=== PATIENT | male | born 1975 | race Caucasian/White ===

== ENCOUNTER 2020-12-21 18:31 | Inpatient (IN) | payer OTHER, SELFPAY ==
--- NOTE | ~2020-12-21 | CT_ITS ---
EXAMINATION: CT RIGHT FOREARM AND HAND WITH CONTRAST CLINICAL INFORMATION: Intravenous drug abuse COMPARISON: None TECHNIQUE: Multidetector CT imaging of the right forearm and hand was performed. Coronal and sagittal reformats are reviewed. This CT examination was performed using dose optimization techniques as appropriate, variously including the following: *Automated exposure control *Adjustment of mA and/or kV according to patient size (this includes techniques or standardized protocols for targeted exams where dose is matched to indication/reason for exam; i.e. extremities or head) *Use of iterative reconstruction technique DLP: 288 mGy-cm FINDINGS: There is skin thickening and subcutaneous fat stranding dorsal to the hand and along the dorsal and radial aspects of the forearm. There is associated superficial thrombophlebitis of 2 veins dorsal to the second metacarpal, extending into radial veins coursing proximally up the forearm. Flow is reconstituted just proximal to an antecubital vein. There is fluid coalescing along the investing fascia of the extensor musculature of the forearm, and radial flexor musculature of the forearm. No soft tissue gas is identified. No drainable collection. There is a volar plate and screws across the distal radius transfixing a healed fracture or dislocation. No evidence of hardware failure or complication. No periosteal reaction, cortical destruction or intramedullary lucency to suggest osteomyelitis. CT/CT forearm RT w con IMPRESSION: * Diffuse skin thickening and subcutaneous fat stranding dorsal to the hand and extending up the forearm particularly along the radial aspect, associated with superficial thrombophlebitis of radial veins within the hand and forearm, with reconstitution of flow within an antecubital vein. * No soft tissue gas to confirm necrotizing fasciitis.
[2020-12-21 20:45] VITALS: BP 106/65; PULSE 81; RESP 16; TEMP 37.1; O2SAT 98; BMI 29.2
[2020-12-21 21:08] LABS: COVID-19 Test Negative (Negative)
[2020-12-21 21:54] LABS: Anion Gap 13 (12-20); Blood Urea Nitrogen 8 mg/dL (9-16); Calcium 9.1 mg/dL (8.4-10.2); Carbon Dioxide 30 mmol/L (22-29); Chloride 92 mmol/L (96-108); Creatinine Clr Calc Pharmacy 130.8; Estimated Glomerular Filt Rate > 60; Glucose Random 136 mg/dL (60-115); Potassium 4.1 mmol/L (3.3-5.1); Sodium 131 mmol/L (135-145)
[2020-12-21 22:05] LABS: Basophils Percent Auto 0.2 % (0-2); Hematocrit 37.4 % (42-52); Hemoglobin 13.2 g/dl (14.0-18.0); Imm Gran Abs Auto 0.08 X10*3/uL (0.00-0.03); Imm Gran Pct Auto 0.4 % (0.0-0.4); Lymphocytes Absolute Auto 1.2 X10*3/uL (1.2-4.9); Lymphocytes Percent Auto 6.4 % (20-40); MANUAL DIFF FLAG SCAN; Mean Corpuscular HGB Conc 35.3 g/dl (31.0-36.0); Mean Corpuscular Volume 82.2 fL (80-98); Mean Platelet Volume 11.3 fL (9.4-12.4); Monocytes Absolute Auto 1.7 X10*3/uL (0.1-1.2); Monocytes Percent Auto 8.7 % (2-11); Neutrophils Absolute Auto 16.2 X10*3/uL (2.0-8.3); Neutrophils Percent Auto 84.3 % (45-73); Platelet Count 211 X10*3/uL (160-400); Red Blood Count 4.55 X10*6/uL (4.60-5.80); Red Cell Distribution Width 12.5 % (11.0-16.0); SCAN SMEAR FLAG 1; White Blood Count 19.2 X10*3/uL (4.8-10.8)
[2020-12-21 22:14] LABS: Lactic Acid 1.3 mmol/L (0.5-2.0)
[2020-12-21 22:25] LABS: SLIDE REVIEW VERIFIED
--- NOTE | 2020-12-21 22:59 | ED_ITS ---
HPI - Skin/Abscess/Foreign Bdy General Chief complaint: Skin/Abscess/Foreign Body Stated complaint: abscess Time Seen by Provider: 12/21/20 22:59 Source: patient Mode of arrival: ambulatory Limitations: no limitations History of Present Illness MD complaint: abscess/boil and lesion Onset (ago): week(s) (1) Tetanus up to date: yes Location: LUE, RUE and R hand Severity: severe Quality: aching Pain Consistency: constant Relieving factors: none Exacerbating factors: palpation and movement Context: IVDA Associated symptoms: fever, chills, nausea and malaise Treatments prior to arrival: attempted to drain pus at home Related Data Allergies Allergy/AdvReac Type Severity Reaction Status Date / Time codeine [CODEINE] Allergy Unknown ANAPHYLAXIS Verified 12/21/20 20:44 Review of Systems Review of Systems: Constitutional : pos Fever, pos Chills ENT/Mouth : No sore throat, No Rhinorrhea Eyes: No Eye Pain, No Swelling, No Redness Cardiovascular : No Chest Pain, No SOB Respiratory : No Cough, No Sputum Gastrointestinal : No Nausea, No Vomiting, No Diarrhea, No abdominal Pain Genitourinary : No Dysuria, No Hematuria Musculoskeletal : No joint pain, No Myalgias, No Joint Swelling Skin : pos Skin Lesions, positive skin rash Neuro : No Weakness, No Numbness, No Headache Psych : No Anxiety, No Depression Heme/Lymph: No Bruising, No Bleeding,No Lymphadenopathy Endocrine : No Polyuria, No Polydipsia All other systems reviewed and are negative PMFSH Past Medical History Attestation statement: The following information was validated with the patient. Medical History Substance abuse Social History Social History (Updated 12/21/20 @ 23:35 by Quita Ortiz DO) Patient Tobacco Use Status: Current everyday Tobacco user Substance Use Type: Heroin and IV Drugs Advance Directives: No Advance Directives Information Provided: Yes Physical Exam Vital Signs: Vital Signs: Last Vital Signs Temp 98.7 F 12/21/20 20:45 Pulse 81 12/21/20 20:45 Resp 16 12/21/20 20:45 BP 106/65 12/21/20 20:45 Pulse Ox 98 12/21/20 20:45 Body Mass Index 29.2 Appearance: Alert. Oriented X3. No acute distress. Eyes: Pupils equal, round and reactive to light. ENT: Pharynx normal. Neck: Normal inspection. Neck supple. CVS: Normal heart rate and rhythm. Pulses normal. Respiratory: No respiratory distress. Breath sounds normal. Abdomen: Soft and nontender. Skin: Skin warm and dry. R hand moderate swelling on dorsum not onto fingers it is tracking up the forearm he has no proximal tendon sheath ttp he can range fingers redness streaks to AC joint, BCR in all fingers, 2+ radial pulse, compartments are soft and compressible, L forearm area small abscess with a point noted localized no extending erythema Extremities: No lower extremity edema. Neuro: Oriented X 3. No motor deficit. No sensory deficit. Course Course Course Narrative: signed out to Dr. Johansen pending images MDM - Skin/Abscess/Foreign Bdy MDM Narrative Medical decision making narrative: 45 yo male with IVDA here with R hand cellulitis I do not suspect tenosynovitis based off exam but he will need CT scan for deeper space abscess. Labs, cultures, IV antibiotics ordered. Will plan to admit if he agrees. Lab Data Result diagrams: 12/21/20 21:56 12/21/20 21:33 Labs: Lab Results 12/21/20 12/21/20 12/21/20 Range/Units 20:49 21:33 21:56 WBC 19.2 H (4.8-10.8) X10*3/uL RBC 4.55 L (4.60-5.80) X10*6/uL Hgb 13.2 L (14.0-18.0) g/dl Hct 37.4 L (42-52) % MCV 82.2 (80-98) fL MCH 29.0 (27.0-33.0) pg MCHC 35.3 (31.0-36.0) g/dl RDW 12.5 (11.0-16.0) % Plt Count 211 (160-400) X10*3/uL MPV 11.3 (9.4-12.4) fL Immature Gran % (Auto) 0.4 (0.0-0.4) % Neut % (Auto) 84.3 H (45-73) % Lymph % (Auto) 6.4 L (20-40) % [place] % (Auto) 8.7 (2-11) % Eos % (Auto) 0.0 (0-4) % Baso % (Auto) 0.2 (0-2) % Lymph # (Auto) 1.2 (1.2-4.9) X10*3/uL [place] # (Auto) 1.7 H (0.1-1.2) X10*3/uL Eos # (Auto) 0.0 (0.0-0.4) X10*3/uL Baso # (Auto) 0.0 (0.0-0.2) X10*3/uL Abs Immat Gran (auto) 0.08 H (0.00-0.03) X10*3/uL Absolute Neuts (auto) 16.2 H (2.0-8.3) X10*3/uL Absolute Nucleated RBC 0.000 (0.0-0.012) X10*3/uL Nucleated RBC % (auto) 0.0 (0.0-0.2) /100WBC Smear Tech's Comments VERIFIED Sodium 131 L (135-145) mmol/L Potassium 4.1 (3.3-5.1) mmol/L Chloride 92 L (96-108) mmol/L Carbon Dioxide 30 H (22-29) mmol/L Anion Gap 13 (12-20) BUN 8 L (9-16) mg/dL Creatinine 0.84 (0.5-1.4) mg/dL Estim Creat Clear Calc 130.8 Estimated GFR > 60 Random Glucose 136 H (60-115) mg/dL Lactic Acid (0.5-2.0) mmol/L Calcium 9.1 (8.4-10.2) mg/dL Total Creatine Kinase 139 (38-174) U/L COVID-19 (JACK) Negative (Negative) COVID-19 Clin Com See Note 12/21/20 Range/Units 21:56 WBC (4.8-10.8) X10*3/uL RBC (4.60-5.80) X10*6/uL Hgb (14.0-18.0) g/dl Hct (42-52) % MCV (80-98) fL MCH (27.0-33.0) pg MCHC (31.0-36.0) g/dl RDW (11.0-16.0) % Plt Count (160-400) X10*3/uL MPV (9.4-12.4) fL Immature Gran % (Auto) (0.0-0.4) % Neut % (Auto) (45-73) % Lymph % (Auto) (20-40) % [place] % (Auto) (2-11) % Eos % (Auto) (0-4) % Baso % (Auto) (0-2) % Lymph # (Auto) (1.2-4.9) X10*3/uL [place] # (Auto) (0.1-1.2) X10*3/uL Eos # (Auto) (0.0-0.4) X10*3/uL Baso # (Auto) (0.0-0.2) X10*3/uL Abs Immat Gran (auto) (0.00-0.03) X10*3/uL Absolute Neuts (auto) (2.0-8.3) X10*3/uL Absolute Nucleated RBC (0.0-0.012) X10*3/uL Nucleated RBC % (auto) (0.0-0.2) /100WBC Smear Tech's Comments Sodium (135-145) mmol/L Potassium (3.3-5.1) mmol/L Chloride (96-108) mmol/L Carbon Dioxide (22-29) mmol/L Anion Gap (12-20) BUN (9-16) mg/dL Creatinine (0.5-1.4) mg/dL Estim Creat Clear Calc Estimated GFR Random Glucose (60-115) mg/dL Lactic Acid 1.3 (0.5-2.0) mmol/L Calcium (8.4-10.2) mg/dL Total Creatine Kinase (38-174) U/L COVID-19 (JACK) (Negative) COVID-19 Clin Com Discharge Plan Discharge Clinical Impression: Cellulitis, Leukocytosis Patient Disposition: Admitted As Inpatient
[2020-12-22] MEDS: 0.9 % Sodium Chloride 1,000 ML 999 ML IVCONT (00:12)
[2020-12-22] MEDS: Piperacillin Sodium/Tazobactam 3.375 GM in 0.9 % Sodium Chloride 50 ML IV (00:12)
[2020-12-22] MEDS: oxyCODONE HCl Immed Release 15 MG TABLET PO (00:13)
--- NOTE | 2020-12-22 00:14 | PC.NURSE ---
this RN at bedside to place USG PIV, pt w/ difficulty tolerating procedure, states I should've just stayed home and shot up instead. Attempted to educate pt that IV access is a priority for abx etc., pt unable to verbalize understanding and says I can't just lay here in pain , also questioning dose of oxy when administered by Mary BUTTS
[2020-12-22] MEDS: vancomycin HCL 1,500 MG in 0.9 % Sodium Chloride 500 ML 333.33 MG IV (01:49)
[2020-12-22 02:08] VITALS: RESP 16
[2020-12-22] MEDS: HYDROmorphone HCl 1 MG/ML SYRINGE IVPUSH (02:08)
[2020-12-22] MEDS: LORazepam 1 MG TABLET PO (02:09)
--- NOTE | 2020-12-22 02:14 | P.HPHOSP_ITS ---
History of Present Illness Date of Service: 12/22/20 Chief Complaint: Right hand pain redness and swelling 45-year-old male with a past medical history of IV drug abuse; presented to the hospital with a chief complaint of right hand pain redness and swelling. Patient reports that he use IV heroin a daily basis. Past couple days he noted pain redness swelling in his right hand extending into the forearm; denies any discharge. Range of motion limited and the wrist and fingers. Reports that symptoms has been going on for past 2-3 days. Reports he used IV drugs in this arm. Patient mentioned that he is on methadone program, 60 mg of methadone. Denies any fevers. Denies any chest pain palpitations lightheadedness or dizziness. Denies any numbness tingling or focal weakness. Review of all other systems is negative except mentioned above ER course: Per ER team patient noted to have right upper extremity pain redness and swelling consistent with cellulitis; extending from the of the fingers to the forearm to the elbow joint; given vancomycin and Zosyn. Lab showed leukocytosis. CT of the forearm pending. Admitted for further management [facility] Medical History Substance abuse Pertinent family history: Reviewed Social History (Updated 12/21/20 @ 23:35 by Quita Ortiz DO) Patient Tobacco Use Status: Current everyday Tobacco user Substance Use Type: Heroin and IV Drugs Advance Directives: No Advance Directives Information Provided: Yes Meds Allergies Allergy/AdvReac Type Severity Reaction Status Date / Time codeine [CODEINE] Allergy Unknown ANAPHYLAXIS Verified 12/21/20 20:44 Active Medications: Current Medications Acetaminophen (Acetaminophen 325 Mg Tablet) 650 mg PO Q6H PRN PRN Reason: Pain, Mild (Pain Scale 1-3) Vancomycin HCl 1,000 mg/ (Sodium Chloride) 270 mls @ 270 mls/hr IV Q12H DUGLAS Magnesium Hydroxide (Milk Of Magnesia 30 Ml Oral.Susp) 30 ml PO DAILY PRN PRN Reason: Constipation Melatonin (Melatonin 3 Mg Tablet) 6 mg PO BEDTIME PRN PRN Reason: Insomnia Oxycodone HCl (Oxycodone Hcl Immed Release 5 Mg Tablet) 5 mg PO Q6H PRN PRN Reason: Pain, Severe (Pain Scale 7-10) Pharmacy Consult (Consult Rx Vancomycin Dosing) 1 each MISCELLANE DAILY PRN PRN Reason: Consult order Pharmacy Consult (Consult Rx Perform Med Rec) 1 each MISCELLANE ONCE PRN PRN Reason: Consult order Pharmacy Consult (Consult Rx Vancomycin Dosing) 1 each MISCELLANE DAILY PRN PRN Reason: Consult order Senna (Sennosides 8.6 Mg Tablet) 17.2 mg PO BEDTIME PRN PRN Reason: Constipation Sodium Chloride (0.9 % Sodium Chloride Flush 3 Ml Syringe) 3 ml IVFLUSH QSHIFT DUGLAS Physical Exam Vital Signs and Narrative: Vital Signs: Last Vital Signs Temp 98.7 F 12/21/20 20:45 Pulse 81 12/21/20 20:45 Resp 16 12/22/20 02:08 BP 106/65 12/21/20 20:45 Pulse Ox 98 12/21/20 20:45 Body Mass Index 29.2 Gen: Appears be in no acute distress HEENT: NCAT, Moist mucosa. Pulmonary: Vesicular breath sounds, fair air entry CVS: Normal S1-S2 Abdomen: BS+, Soft, Nontender Extremities: Warm well perfused; right upper extremity warm tender and erythematous, on the dorsum of the hand, extending to the forearm, tender on the forearm near the elbow on the medial side. Range of motion limited the wrist secondary to the pain; fingers extension also limited the dorsum of the hand secondary to the pain. Neuro: Alert and awake. Results Labs CBC and Chem 7: 12/21/20 21:56 12/21/20 21:33 Labs: Laboratory Results - last 24 hr 12/21/20 12/21/20 12/21/20 20:49 21:33 21:56 MCV 82.2 MCH 29.0 MCHC 35.3 RDW 12.5 Plt Count 211 MPV 11.3 Immature Gran % (Auto) 0.4 Neut % (Auto) 84.3 H Lymph % (Auto) 6.4 L [place] % (Auto) 8.7 Eos % (Auto) 0.0 Baso % (Auto) 0.2 Lymph # (Auto) 1.2 [place] # (Auto) 1.7 H Eos # (Auto) 0.0 Baso # (Auto) 0.0 Abs Immat Gran (auto) 0.08 H Absolute Neuts (auto) 16.2 H Absolute Nucleated RBC 0.000 Nucleated RBC % (auto) 0.0 Smear Tech's Comments VERIFIED Anion Gap 13 Estim Creat Clear Calc 130.8 Estimated GFR > 60 Random Glucose 136 H Lactic Acid Calcium 9.1 Total Creatine Kinase 139 COVID-19 (JACK) Negative COVID-19 Clin Com See Note 12/21/20 21:56 MCV MCH MCHC RDW Plt Count MPV Immature Gran % (Auto) Neut % (Auto) Lymph % (Auto) [place] % (Auto) Eos % (Auto) Baso % (Auto) Lymph # (Auto) [place] # (Auto) Eos # (Auto) Baso # (Auto) Abs Immat Gran (auto) Absolute Neuts (auto) Absolute Nucleated RBC Nucleated RBC % (auto) Smear Tech's Comments Anion Gap Estim Creat Clear Calc Estimated GFR Random Glucose Lactic Acid 1.3 Calcium Total Creatine Kinase COVID-19 (JACK) COVID-19 Clin Com Assessment and Plan (1) Cellulitis: Qualifiers: Laterality: right Site of cellulitis: extremity Site of cellulitis of extremity: upper extremity Qualified Code(s): L03.113 - Cellulitis of right upper limb Status: Acute (2) Intravenous drug abuse: Status: Acute 45-year-old male with a past medical history of IV drug abuse; presented to the hospital with a chief complaint of right hand pain redness and swelling. Right upper extremity cellulitis: In the context of IV drug abuse. Will continue IV vancomycin. CT forearm pending. Concern for Tenosynovitis. consulted Orthopedics. Pain control History of IV drug abuse: Addiction Medicine consult. Patient reports that he is on 60 mg of methadone. COWS protocol. Tobacco dependence: Patient smokes half pack of cigarettes per day. Counseled on smoking cessation. Nicotine patches offered. DVT prophylaxis: SCD boots Code status: Full code Quality Stroke Does the patient have a stroke diagnosis?: No VTE Prior VTE?: No VTE Risk Level:: Medical - low VTE Device Contraindication: N/A - Device Ordered VTE Drug Contraindication: Treatment Not Indicated
--- NOTE | 2020-12-22 02:14 | PC.NURSE ---
PATIENT MEDICATED PER EMAR, STATING HE CAN'T GO TO CT SCAN UNTIL HIS PAIN IS GONE. CT ATTEMPTING TO TAKE PATIENT MULTIPLE TIMES. MD IS AWARE. PLAN OF CARE FOR ADMISSION. PATIENT IS ALERT AND ABLE TO ANSWER QUESTIONS. PATIENT REFUSING TO USE HIS ARMS OR HANDS, WHEN GIVEN PO MEDICATIONS PATIENT OPENING HIS MOUTH, STATING I AM READY REFUSING TO TAKE THE MEDICINE CUP AND WATER FROM THIS RN. BUT HOLDING HIS ARM WITH HIS OTHER ARM AND ABLE TO MOVE THE LEFT ARM APPROPRIATELY. PATIENTS FAMILY MEMBER [facility]. PATIENT HAS ANTIBIOTIC ON PUMP RUNNING, MULTIPLE ISSUES BECAUSE PATIENT IS OCCLUDING THE VEIN BY BENDING HIS ARM. EDUCATED MULTIPLE TIMES ON STRAIGHTENING HIS ARM. STATING IT CAUSES DISCOMFORT AND BENDING ARM ABOVE HIS HEAD. FLUIDS AND ANTIBIOTICS RUNNING SLOWLY.
[2020-12-22] MEDS: iohexoL 350 MG/ML 100 ML INFUS..BTL 85 ML IV (03:05)
[2020-12-22] MEDS: Ketorolac Tromethamine 15 MG/ML VIAL IVPUSH (04:43)
[2020-12-22 06:24] LABS: Basophils Percent Auto 0.2 % (0-2); Eosinophils Absolute Auto 0.2 X10*3/uL (0.0-0.4); Eosinophils Percent Auto 0.8 % (0-4); Hematocrit 35.7 % (42-52); Hemoglobin 12.4 g/dl (14.0-18.0); Imm Gran Abs Auto 0.14 X10*3/uL (0.00-0.03); Imm Gran Pct Auto 0.7 % (0.0-0.4); Lymphocytes Absolute Auto 0.8 X10*3/uL (1.2-4.9); MANUAL DIFF FLAG SCAN; Mean Corpuscular HGB Conc 34.7 g/dl (31.0-36.0); Mean Corpuscular Hemoglobin 28.2 pg (27.0-33.0); Mean Corpuscular Volume 81.3 fL (80-98); Mean Platelet Volume 11.8 fL (9.4-12.4); Monocytes Absolute Auto 1.5 X10*3/uL (0.1-1.2); Monocytes Percent Auto 7.8 % (2-11); Neutrophils Absolute Auto 17.1 X10*3/uL (2.0-8.3); Neutrophils Percent Auto 86.5 % (45-73); Platelet Count 192 X10*3/uL (160-400); Red Blood Count 4.39 X10*6/uL (4.60-5.80); Red Cell Distribution Width 12.2 % (11.0-16.0); SCAN SMEAR FLAG 1; White Blood Count 19.7 X10*3/uL (4.8-10.8)
[2020-12-22 06:44] LABS: SLIDE REVIEW VERIFIED
[2020-12-22 06:54] LABS: Anion Gap 13 (12-20); Blood Urea Nitrogen 8 mg/dL (9-16); Calcium 8.4 mg/dL (8.4-10.2); Carbon Dioxide 27 mmol/L (22-29); Chloride 95 mmol/L (96-108); Creatinine Clr Calc Pharmacy 135.6; Estimated Glomerular Filt Rate > 60; Glucose Random 126 mg/dL (60-115); Potassium 3.6 mmol/L (3.3-5.1); Sodium 131 mmol/L (135-145)
--- NOTE | 2020-12-22 07:55 | PHA.PROG ---
Admission Date/Time: December 22, 2020 02:10 Indication: Cellulitis (IVDU) Weight in k.254 kg Adjusted body weight in K.28 kg [place] body weight in K kg Serum Creatinine - Last 168 Hours 12/21/20 12/22/20 21:33 06:12 Creatinine 0.84 0.81 Estimated CrCl and GFR - Last 168 Hours 12/21/20 12/22/20 21:33 06:12 Estim Creat Clear Calc 130.8 135.6 Estimated GFR > 60 > 60 Vancomycin Loading Dose: 1500 mg Current Vancomycin Dosing Regimen: 1250 mg Q12H Date and Time for next Vancomycin Level to be drawn: 12/23 @ 999 Pharmacist Comments on Vancomycin Plan: LD 1500 mg given on 12/22 @ 0149. Start maintenance dosing of 1250 mg Q12H in 10 hours at 1100. Expected AUC 463 with a trough of 14. Should be in therapuetic ranges after 3rd dose. trough to be drawn before 4th dose on 12/23 @ 1000 Pharmacy to continue monitoring renal function daily Ericka Reese PharmD Vancomycin dosing will take advantage of [employer] as a clinical decision support tool that uses Bayesian modeling to calculate individual patient's pharmacokinetic parameters and forecast the patient's drug concentration time course with the target goal AUC 24 range of 400 - 600 mg/L/hr.
--- NOTE | 2020-12-22 09:06 | PHA.MEDREC ---
Pharmacy Consult ? Medication Reconciliation Pharmacy has completed the medication reconciliation. Patient reports he only takes methadone. Methadone confirmed with Kiki at [facility] on [address] last dose was 65 mg given on 12/16/2020. Would recommended decrease dose since it has been a week since the last dose. Ericka Reese, PharmD
[2020-12-22] MEDS: Nicotine 14 MG PATCH.TD24 TRANSDERMA (09:20)
[2020-12-22 09:56] VITALS: BP 91/50; PULSE 62; RESP 14; TEMP 37.7; O2SAT 93
--- NOTE | 2020-12-22 10:47 | PM.EVENT ---
Event Note Date of Service: 12/22/20 Event Note: Patient seen at bedside by Myself and Dr Johnson Patient is able to make a fist and extend fingers. Volar aspect of the hand and forearm are soft. Flexor tendons pain free and thenar compartment soft. There dorsum of the hand and forearm are firm and tender. No fluctulance or purulance appreciated. No pain with axial loading of the MCPs, or IPs or wrist. Cont iv abx will continue to follow full consult note to follow
--- NOTE | 2020-12-22 10:51 | P.CONOP_ITS ---
History of Present Illness HPI Consult date: 12/22/20 Chief complaint: Cellulitis Narrative: Mr Hameed is a 45-year-old male with a past medical history of IV drug abuse, uses heroin daily; presented to the hospital with a chief complaint of right hand pain, redness and swelling x2-3 days. He states the pain in his right hand started extending into the forearm; denies any discharge. He states he did inject into the right arm but does not remember exactly where. Review of Systems Review of Systems: Yes all other systems are reviewed and are negative [facility] Past Medical History Medical History Substance abuse Social History Social History (Updated 12/21/20 @ 23:35 by Quita Ortiz DO) Alcohol intake: unknown Patient Tobacco Use Status: Current everyday Tobacco user Use of substances other than those prescribed or required for medical reasons: Yes Substance Use Type: Heroin and IV Drugs Advance Directives: No Advance Directives Information Provided: Yes Meds Allergies Allergy/AdvReac Type Severity Reaction Status Date / Time codeine [CODEINE] Allergy Unknown ANAPHYLAXIS Verified 12/21/20 20:44 Active Medications: Current Medications Acetaminophen (Acetaminophen 325 Mg Tablet) 650 mg PO Q6H PRN PRN Reason: Pain, Mild (Pain Scale 1-3) Vancomycin HCl 1,250 mg/ (Sodium Chloride) 250 mls @ 166.667 mls/hr IV Q12H [facility] Ketorolac Tromethamine (Ketorolac Tromethamine 15 Mg/Ml Vial) 15 mg IVPUSH Q6H PRN PRN Reason: Breakthrough Pain Last Admin: 12/22/20 04:43 Dose: 15 mg Documented by: Magnesium Hydroxide (Milk Of Magnesia 30 Ml Oral.Susp) 30 ml PO DAILY PRN PRN Reason: Constipation Melatonin (Melatonin 3 Mg Tablet) 6 mg PO BEDTIME PRN PRN Reason: Insomnia Nicotine (Nicotine 14 Mg Patch.Td24) 14 mg TRANSDERMA DAILY [facility] Last Admin: 12/22/20 09:20 Dose: 14 mg Documented by: Oxycodone HCl (Oxycodone Hcl Immed Release 5 Mg Tablet) 5 mg PO Q6H PRN PRN Reason: Pain, Severe (Pain Scale 7-10) Pharmacy Consult (Consult Rx Perform Med Rec) 1 each MISCELLANE ONCE PRN PRN Reason: Consult order Pharmacy Consult (Consult Rx Vancomycin Dosing) 1 each MISCELLANE DAILY PRN PRN Reason: Consult order Senna (Sennosides 8.6 Mg Tablet) 17.2 mg PO BEDTIME PRN PRN Reason: Constipation Sodium Chloride (0.9 % Sodium Chloride Flush 3 Ml Syringe) 3 ml IVFLUSH QSHIFT [facility] Last Admin: 12/22/20 07:38 Dose: Not Given Documented by: Home Medications Medication Instructions Recorded Confirmed Last Taken Type methadone 10 mg/mL oral 60 mg PO DAILY 12/22/20 12/22/20 12/16/20 History concentrate (Methadose) Physical Exam Vital Signs: Vital Signs: Last Vital Signs Temp 99.8 F 12/22/20 09:56 Pulse 62 12/22/20 09:56 Resp 14 12/22/20 09:56 BP 91/50 L 12/22/20 09:56 Pulse Ox 93 12/22/20 09:56 Body Mass Index 29.2 Const: General: no acute distress Extrem: Other: Patient is able to make a fist and extend fingers. Volar aspect of the hand and forearm are soft. Flexor tendons pain free and thenar c ompartment soft. There dorsum of the hand and forearm are firm and tender. No fluctulance or purulance appreciated. No pain with axial loading of the? MCPs, or IPs or wrist. Results Labs Result Diagrams: 12/22/20 06:12 12/22/20 06:12 Labs: Abnormal lab results 12/21/20 12/21/20 12/22/20 Range/Units 21:33 21:56 06:12 WBC 19.2 H 19.7 H (4.8-10.8) X10*3/uL RBC 4.55 L 4.39 L (4.60-5.80) X10*6/uL Hgb 13.2 L 12.4 L (14.0-18.0) g/dl Hct 37.4 L 35.7 L (42-52) % Immature Gran % (Auto) 0.7 H (0.0-0.4) % Neut % (Auto) 84.3 H 86.5 H (45-73) % Lymph % (Auto) 6.4 L 4.0 L (20-40) % Lymph # (Auto) 0.8 L (1.2-4.9) X10*3/uL [place] # (Auto) 1.7 H 1.5 H (0.1-1.2) X10*3/uL Abs Immat Gran (auto) 0.08 H 0.14 H (0.00-0.03) X10*3/uL Absolute Neuts (auto) 16.2 H 17.1 H (2.0-8.3) X10*3/uL Sodium 131 L (135-145) mmol/L Chloride 92 L (96-108) mmol/L Carbon Dioxide 30 H (22-29) mmol/L BUN 8 L (9-16) mg/dL Random Glucose 136 H (60-115) mg/dL 12/22/20 Range/Units 06:12 WBC (4.8-10.8) X10*3/uL RBC (4.60-5.80) X10*6/uL Hgb (14.0-18.0) g/dl Hct (42-52) % Immature Gran % (Auto) (0.0-0.4) % Neut % (Auto) (45-73) % Lymph % (Auto) (20-40) % Lymph # (Auto) (1.2-4.9) X10*3/uL [place] # (Auto) (0.1-1.2) X10*3/uL Abs Immat Gran (auto) (0.00-0.03) X10*3/uL Absolute Neuts (auto) (2.0-8.3) X10*3/uL Sodium 131 L (135-145) mmol/L Chloride 95 L (96-108) mmol/L Carbon Dioxide (22-29) mmol/L BUN 8 L (9-16) mg/dL Random Glucose 126 H (60-115) mg/dL H & H 12/21/20 12/22/20 Range/Units 21:56 06:12 Hgb 13.2 L 12.4 L (14.0-18.0) g/dl Hct 37.4 L 35.7 L (42-52) % All other labs normal. Assessment and Plan (1) Intravenous drug abuse: Status: Acute (2) Cellulitis: Qualifiers: Laterality: right Site of cellulitis: extremity Site of cellulitis of extremity: upper extremity Qualified Code(s): L03.113 - Cellulitis of right upper limb Status: Acute Dr Johnson and myself at bedside to see the patient. He will continue iv abx. Continue to work on elevation and ROM. No notable abscess at this time to drain. No surgical intervention. Will continue to follow. Procedures Date of Service Date of Service: 12/22/20
[2020-12-22] MEDS: vancomycin HCL 1,250 MG in 0.9 % Sodium Chloride 250 ML 166.67 MG IV (11:34)
[2020-12-22] MEDS: oxyCODONE HCl Immed Release 5 MG TABLET PO (16:28)
[2020-12-22] MEDS: Acetaminophen 325 MG TABLET 650 MG PO (16:28)
[2020-12-22 18:14] VITALS: BP 92/51; PULSE 66; RESP 14; TEMP 37.6; O2SAT 97
--- NOTE | 2020-12-22 19:28 | PC.NURSE ---
Received report on pt at shift change, no distress or concerns relayed by previous RN. On initial contact w/ pt, pt noted to be dressed in street clothes and yelling at someone on the phone just pick me up, I'm going to [facility]. Pt noting concerns about being in hallway for several hours, not able to rest etc. This RN and Ancemlo RN attempting to listen to pt concerns, acknowledge frustration, and offer alternatives, sleep aids, other comfort measures. Pt not willing to engage in conversation, states repeatedly I'm over it, I'm over it. I'll write a review about y'all online. This RN also attempted to explain risks of leaving against medical advice, pt also not willing to listen to this attempt at education. Hospitalist paged to notify of situation, pt unwilling to wait for MD luis prior to departure. PIV removed without complication. Pt ambulatory w/ steady gait out of dept, in NAD at time of dc
--- NOTE | 2020-12-22 19:54 | P.EN_ITS ---
Event Note Date of Service: 12/22/20 Event Note: Against medical advise note: History: Patient was admitted for right upper extremity cellulitis concerns for tenosynovitis. Seen by orthopedics recommended conservative management of IV antibiotics now. Patient has been followed by the Day hospitalist from 7:00 a.m. on 12/22/2020. Around 7:00 p.m. RN mentioned that patient wanted to leave AMA. Did not wait for the MD. Pt Mentioned to RN that he is done waiting for bed availability upstairs; and he does not want to stay in the hallway in the ER anymore, also mentioned that he will go to [facility]. RN explained to the patient about the importance of IV antibiotics given extensive cellulitis. RN reported that patient understood the risks and he signed the AMA form and left the hospital.
--- NOTE | 2020-12-23 07:35 | PM.EVENT ---
Event Note Date of Service: 12/31/20 Event Note: I saw and examined the patient and discuused lab, cultures and it was understood that he would be in the hospital fo IV abx
--- NOTE | 2020-12-23 07:52 | P.DS_ITS ---
DS: Providers Provider Date of Service: 12/22/20 Date of admission: 12/22/20 02:10 Primary care physician: Sanford Suresh DO, MD Consults: 12/22/20 02:10 Addiction Medicine Routine Consulting Provider: Marilyn Medellin Reason for consultation: substance abuse Consult to Orthopedics Routine Consulting Provider: Casey Henry Reason for consultation: hand cellulitis; ?tenosinuvitis DS: Diagnosis Discharge Diagnosis (1) Cellulitis: Status: Acute (2) Intravenous drug abuse: Status: Acute DS: Summary Hospital Course Hospital Course: late entry for 12/22/20. Patient was admitted for cellulitis of hand related to IV drug use and had gram positive cocci bacteremia. He was beeing apropriately treate with IV vancomycin. He left AMA as reported elsewhere because he was frustrated of remaining in the ED for hour after admission and would not wait to be advised by the staff physician at that time. He reportedly stated that he was going to [facility], RN note suggest that an effort was made to advise of seriousness of his condition and and was not swayed by this. On morning 12/23/20, I attempted to reach him by phone to convey seriousness of his condition again but there was no answer Time Spent with Patient Time attestation: Total time spent providing and/or coordinating discharge services: Discharge coordination time: Less than 30 minutes Quality: Stroke Does the patient have a stroke diagnosis?: No Physical Exam Vital Signs: Vital Signs: Last Vital Signs Temp 99.7 F 12/22/20 18:14 Pulse 66 12/22/20 18:14 Resp 14 12/22/20 18:14 BP 92/51 L 12/22/20 18:14 Pulse Ox 97 12/22/20 18:14 Body Mass Index 29.2 DS: Data Data Completed and Pending Labs on day of discharge: Preliminary micro results at discharge 12/21/20 21:32 Blood Culture - Preliminary Blood - Venous Prelim: GPC Gram Stain only 12/21/20 21:20 Blood Culture - Preliminary Blood - Venous Prelim: GPC Gram Stain only Discharge Plan Discharge Patient Disposition: Left Against Medical Advice Discharge Diagnosis: Cellulitis of the hand and bacteremia Discharge Medications: No Action methadone [Methadose] 10 mg/mL Concentrate 60 mg PO DAILY RF: 0 Discharge Orders: Discharge Order (Routine); Ordered 12/23/20 Ordered By: Danial Rendonh Care Plan Goals: lerft ama Health Concerns: left ama Plan of Treatment: left ama Assessment: left ama Discharge Date/Time: 12/22/20 19:44
--- NOTE | 2020-12-23 09:50 | PC.NURSE ---
Positive blood cultures with group a beta strept. VM left for patient to return or seek care elsewhere.
== END 2020-12-22 19:44 | disposition left against medical advice (07) | DRG 383 ==
LOC: HO.ED 12-22 02:01 → HO.EDOVER 12-22 02:18
PROVIDERS: Admitting Provider Hospitalist; Emergency Provider Emergency Medicine; PCP Internal Medicine; Visit Provider Internal Medicine
DX: L03.113 Cellulitis of right upper limb (principal); R78.81 Bacteremia; F17.210 Nicotine dependence, cigarettes, uncomplicated; F11.20 Opioid dependence, uncomplicated; Z71.6 Tobacco abuse counseling; Z88.5 Allergy status to narcotic agent; Z20.822 Contact with and (suspected) exposure to COVID-19
CPT/HCPCS: 36415; 73201; 80048; 82550; 83605; 85025; 87040; 87147; 87186; 87205; 87635; 99284; J1170; J1885; J2543; J3370; Q9967

== ENCOUNTER 2021-04-20 19:25 | Emergency (ER) | payer OTHER, SELFPAY ==
--- NOTE | ~2021-04-20 | CT_ITS ---
EXAMINATION: CT CHEST, ABDOMEN AND PELVIS WITHOUT CONTRAST. CLINICAL INFORMATION: Fall, rib pain . COMPARISON: Fall with rib pain. Trauma. TECHNIQUE: Multidetector volumetric imaging was performed from the thoracic inlet through the pubic symphysis without intravenous contrast. Sagittal and coronal reformatted images were obtained on the technologist workstation. This CT examination was performed using dose optimization techniques as appropriate, variously including the following: *Automated exposure control *Adjustment of mA and/or kV according to patient size (this includes techniques or standardized protocols for targeted exams where dose is matched to indication/reason for exam; i.e. extremities or head) *Use of iterative reconstruction technique DLP: 808 mGy-cm FINDINGS: CHEST: Lungs: Minimal bibasilar dependent atelectasis. No pneumothorax. No dense consolidation Mediastinum: The mediastinum is normal. The central vascular structures are unremarkable. No hilar or mediastinal lymphadenopathy. Pericardium/Pleura: Small layering left pleural effusion. Chest Wall/Axilla: Unremarkable. ABDOMEN/PELVIS: Peritoneal Space:No significant free air or free fluid identified. Liver, Gallbladder, Biliary Tree: The non contrast liver is normal in size, shape, and attenuation. No focal hepatic lesion or biliary ductal dilatation is present. The gallbladder is unremarkable with no evidence of radiopaque gallstones, gallbladder wall thickening, or obvious pericholecystic inflammatory changes. Pancreas: Unremarkable. Spleen: Unremarkable. Adrenal Glands: Unremarkable. Kidneys and Ureters: The kidneys are normal in size, shape, and attenuation. No hydronephrosis, hydroureter, or calculi seen. No perinephric stranding. Bladder: Unremarkable. Gastrointestinal Tract: Colon is mostly decompressed and difficult to evaluate but no colonic wall thickening or pericolonic inflammatory change. Visualized small bowel grossly unremarkable Abdominal Wall: No significant hernia is appreciated. Lymphovascular Structures: Mild vascular calcification within the aorta iliac system.. Pelvic Viscera: Unremarkable. Osseus Structures: Nondisplaced lateral left sided ninth rib fracture is seen. No other definitive rib fractures noted. No other acute bony abnormality seen. CT/CT abdomen pelvis wo con IMPRESSION: Nondisplaced lateral left sided ninth rib fracture. Small left-sided pleural effusion but no pneumothorax. Mild dependent atelectasis. No visceral organ injury appreciated on this noncontrast study..
[2021-04-20 19:43] VITALS: PULSE 77; O2SAT 100
[2021-04-20 19:59] VITALS: BP 129/75; PULSE 57; RESP 16; TEMP 36.6; O2SAT 97; BMI 24.4
--- NOTE | 2021-04-20 20:22 | ED_ITS ---
HPI - Fall General Chief Complaint: Fall Stated Complaint: RIB PAIN Source: patient Mode of arrival: ambulatory Limitations: no limitations History of Present Illness HPI Narrative: 45-year-old male presents with injury sustained from falling into a sink hole approximately 2 days ago. States that he has left-sided rib pain and is having a difficult time ambulating and moving his arms because of the pain. Patient is on methadone, and is homeless at this time. he does not report any other symptoms. MD complaint: fall Onset (ago): day(s) (2) Fall from: from height (distance) (6 ft into a hole) Fall witnessed: no Place fall occurred: street Loss of consciousness: none Prolonged down time: no Symptoms prior to fall: none Context: other (Fell into a hole) Location of injury: chest Severity: severe Severity scale (1-10): 10 Quality: aching and throbbing Associated symptoms (after fall): chest pain Related Data Home Medications Medication Instructions Recorded Confirmed methadone 10 mg/mL oral 60 mg PO DAILY 12/22/20 12/22/20 concentrate (Methadose) Previous Rx's Medication Instructions Recorded ketorolac 10 mg tablet 10 mg PO Q6H PRN 5 Days #20 tab 04/21/21 Allergies Allergy/AdvReac Type Severity Reaction Status Date / Time codeine [CODEINE] Allergy Unknown ANAPHYLAXIS Verified 12/21/20 20:44 Review of Systems Review of Systems: Constitutional: No Fever, No Chills ENT/Mouth: No Ear Pain, No Hoarseness, No sore throat Eyes: No Eye Pain, No Swelling, No Redness, No Foreign Body Cardiovascular: No Chest Pain, No SOB Respiratory: No Cough, No Dyspnea Gastrointestinal: No Nausea, No Vomiting, No Diarrhea, No abdominal Pain Genitourinary: No Dysuria, No Hematuria Musculoskeletal: positive chest wall and flank pain, No Myalgias, No Joint Swelling Skin: No Skin lacerations, No rash Neuro: No Weakness, No Numbness, No Paresthesias, No Loss of Consciousness, No Dizziness, No Headache Psych: No Anxiety/Panic, No Depression Heme/Lymph: no easy bruising, no Lymphadenopathy Endocrine: No Polyuria, No Polydipsia Yes all other systems are reviewed and are negative [facility] Past Medical History Attestation statement: The following information was validated with the patient. Source: old records reviewed Medical History Substance abuse Social History Social History Alcohol intake: former Patient Tobacco Use Status: Current everyday Tobacco user Use of substances other than those prescribed or required for medical reasons: Yes Substance Use Type: Crack/Cocaine, Heroin, IV Drugs and Marijuana Substance Use Frequency: Daily Last Used Substance: Hours (ago) Any prior treatment program specific to substance use: Yes Advance Directives: No Advance Directives Information Provided: No Physical Exam Vital Signs: Vital Signs: Last Vital Signs Temp 99.2 F 04/20/21 20:51 Pulse 50 04/21/21 01:28 Resp 18 04/21/21 01:28 BP 107/59 L 04/20/21 22:50 Pulse Ox 96 04/20/21 22:50 BMI result Body Mass Index 24.4 Appearance: Alert. Oriented X3. Moderate distress. Eyes: Pupils equal, round and reactive to light. Sclera nonicteric. EOMI. ENT: Pharynx normal. Moist mucous membranes. Neck: Normal inspection. Neck supple. No vertebral tenderness or nuchal rigidity. Full range of motion. No axial loading tenderness. CVS: Normal heart rate and rhythm. Pulses normal. Chest wall tenderness to palpation on the left side. Respiratory: No respiratory distress. Breath sounds normal. Abdomen: Soft and nontender. Skin: Skin warm and dry. Normal skin color. Normal skin turgor. Extremities: No lower extremity edema. Moves all extremities against resistance. Neuro: No motor deficit. No sensory deficit. Cranial nerves 2-12 intact. Course Course Course Narrative: 45-year-old male presents with left-sided chest wall pain and flank pain after falling into a hole that was approximately 6 feet deep 2 days ago. Patient would not describe how he got out of that hole, and stated that he did not seek medical attention at that time because he did not feel that his injuries were that severe. At this time he reports 10/10 chest wall pain, reports to be on methadone and is homeless. Based on the description of the injury, will order CT scan of chest abdomen and pelvis with contrast. Will order lab values. Pain management with IM Toradol. Patient is afebrile, has even unlabored respirations, increased pain on inspiration consistent with suspected rib fracture. 21:26 patient does have a history of IVDA, has no venous access. Two attempts made, patient refused further blood sticks and draws. Orders have been changed to a dry CT of chest abdomen pelvis, and labs will be discontinued. Patient also refused chest x-ray at this time. Patient's wishes respected. He does understand that noncontrast study is not optimal for this kind of trauma. He does understand risks and benefits of declining lab values. [address] scan indicates nondisplaced lateral left-sided 9th rib fracture with small pleural effusion without pneumothorax. Pleural effusion is small, does not require further intervention. Monitoring is required, patient does understand that he must present for repeat chest x-rays. Patient verbalized understanding of and agrees to plan of care discharge home. Patient verbalized understanding of signs and symptoms indicating need for emergent intervention. MDM - Fall MDM Narrative Medical decision making narrative: Pneumothorax, pleural effusion Differential Diagnosis Differential diagnosis: Likely fracture Medical Records Attestation: I reviewed the patient's medical records. Imaging Data CT chest abdomen pelvis: Attestation: I personally reviewed and interpreted this imaging study as follows: Radiologist's impression: FINDINGS: CHEST: Lungs: Minimal bibasilar dependent atelectasis. No pneumothorax. No dense consolidation Mediastinum: The mediastinum is normal.? The central vascular structures are unremarkable.? No hilar or mediastinal lymphadenopathy. Pericardium/Pleura: Small layering left pleural effusion. Chest Wall/Axilla: Unremarkable. ABDOMEN/PELVIS: Peritoneal Space:No significant free air or free fluid identified. Liver, Gallbladder, Biliary Tree: The non contrast liver is normal in size, shape, and attenuation. No focal hepatic lesion or biliary ductal dilatation is present.? The gallbladder is unremarkable with no evidence of radiopaque gallstones, gallbladder wall thickening, or obvious pericholecystic inflammatory changes. Pancreas: Unremarkable. Spleen: Unremarkable. Adrenal Glands: Unremarkable. Kidneys and Ureters: The kidneys are normal in size, shape, and attenuation. No hydronephrosis, hydroureter, or calculi seen. No perinephric stranding. Bladder: Unremarkable. Gastrointestinal Tract: Colon is mostly decompressed and difficult to evaluate but no colonic wall thickening or pericolonic inflammatory change. Visualized small bowel grossly unremarkable Abdominal Wall: No significant hernia is appreciated. Lymphovascular Structures: Mild vascular calcification within the aorta iliac system.. Pelvic Viscera: Unremarkable. Osseus Structures: Nondisplaced lateral left sided ninth rib fracture is seen. No other definitive rib fractures noted. No other acute bony abnormality seen. CT/CT abdomen pelvis wo con IMPRESSION: Nondisplaced lateral left sided ninth rib fracture. Small left-sided pleural effusion but no pneumothorax. Mild dependent atelectasis. No visceral organ injury appreciated on this noncontrast study.. ECG Data Attestation: I personally reviewed and interpreted this ECG as follows: ECG interpretation date: 04/20/21 ECG interpretation time: 21:12 Prior ECG tracings: available for review Interpretation: Vent. rate 56 BPM RI interval 146 ms QRS duration 88 ms QT/QTc 446/430 ms P-R-T axes 46 -11 26 Sinus bradycardia Otherwise normal ECG When compared with ECG of 01-NOV-2017 20:21, T wave amplitude has decreased in Lateral leads Discharge Plan Discharge Clinical Impression: Closed rib fracture, Pleural effusion Patient Disposition: Home, Self-Care Instructions: Rib Fracture (ED), Pleural Effusion (ED) Additional Instructions: You were evaluated for injury sustained from a fall. CT scan indicates 9th rib fracture and small pleural effusion. Please return in 2 days for repeat chest x-ray. If you notice any signs and symptoms of shortness of breath, increased chest pain, weakness, or any other concerning symptoms please return to the emergency department immediately. Thank you for choosing this emergency department for evaluation. Please follow-up with primary care physician as needed. Return to the emergency department for any new, concerning, or worsening symptoms. Prescriptions: New ketorolac 10 mg tablet 10 mg PO Q6H PRN (Reason: pain) 5 Days Qty: 20 0RF Rx Instructions: 60 mg IM dose given in the emergency department. Rib fractures. No Action methadone [Methadose] 10 mg/mL Concentrate 60 mg PO DAILY 0RF
--- NOTE | 2021-04-20 20:28 | ECG_ITS ---
Test Reason : FALL Blood Pressure : / mmHG Vent. Rate : 056 BPM Atrial Rate : 056 BPM P-R Int : 146 ms QRS Dur : 088 ms QT Int : 446 ms P-R-T Axes : 046 -11 026 degrees QTc Int : 430 ms Sinus bradycardia Otherwise normal ECG When compared with ECG of 01-NOV-2017 20:21, T wave amplitude has decreased in Lateral leads Referred By: Ann Herrera Electronically Signed By:Sukumar Orellana
--- NOTE | 2021-04-20 20:44 | PC.NURSE ---
patient admitted to staff that he had drug paraphernalia in his blessing pack in the room with him. security was called to obtain the blessing pack prior to this nurse going in to start an IV.
[2021-04-20 20:51] VITALS: BP 126/76; PULSE 51; RESP 22; TEMP 37.3; O2SAT 98
--- NOTE | 2021-04-20 21:01 | PC.NURSE ---
pt a&ox3, vss, attempted to place IV, and draw labs, CT pending.
[2021-04-20] MEDS: Ketorolac Tromethamine 60 MG/2 ML VIAL IM (21:16)
--- NOTE | 2021-04-20 21:26 | PC.NURSE ---
unable to obtain iv access on patient x3 with assistance of additional nursing staff, tech attempted labs without success- pt refused any further attempts, ekg performed, provider notified, will continue to monitor.
[2021-04-20 22:00] VITALS: BP 107/59; PULSE 53; RESP 12; O2SAT 96
--- NOTE | 2021-04-20 22:47 | PC.NURSE ---
pt sleeping, rousable to verbal, vss, pt reporting decrease of pain, CT results pending, will continue to monitor
[2021-04-20 22:50] VITALS: BP 107/59; PULSE 52; RESP 14; O2SAT 96
[2021-04-21 01:28] VITALS: PULSE 50; RESP 18
== END 2021-04-21 06:39 | disposition home or self-care (01) ==
PROVIDERS: Emergency Provider Emergency Medicine; PCP Internal Medicine
DX: S22.32XA Fracture of one rib, left side, initial encounter for closed fracture (principal); W17.2XXA Fall into hole, initial encounter; J90 Pleural effusion, not elsewhere classified; F19.10 Other psychoactive substance abuse, uncomplicated; F11.20 Opioid dependence, uncomplicated; F17.200 Nicotine dependence, unspecified, uncomplicated; Y93.01 Activity, walking, marching and hiking; Y92.410 Unspecified street and highway as the place of occurrence of the external cause; Y99.9 Unspecified external cause status
CPT/HCPCS: 71250; 74176; 93005; 96372; 99284; 99285; J1885

== ENCOUNTER 2021-04-21 07:34 | Emergency (ER) | payer OTHER, SELFPAY ==
--- NOTE | ~2021-04-21 | XR_ITS ---
EXAMINATION: XR CHEST CLINICAL INFORMATION: Chest pain COMPARISON: None TECHNIQUE: Frontal view of the chest was obtained. FINDINGS: The lungs are well-expanded. There is no focal consolidation, edema or effusion. No pneumothorax. The cardiomediastinal silhouette is within normal limits. No acute osseous abnormality. XR/XR chest 1V IMPRESSION: No acute pulmonary disease.
[2021-04-21 07:38] VITALS: BP 115/67; PULSE 55; RESP 20; TEMP 36.6; O2SAT 94; BMI 23.7
--- NOTE | 2021-04-21 08:07 | ED.GENADULT ---
HPI - General Adult General Chief complaint: General Medical Stated complaint: chest pain Time Seen by Provider: 04/21/21 08:07 Source: patient Mode of arrival: ambulatory Limitations: no limitations History of Present Illness HPI narrative: Patient is a 45 year old male presenting to the emergency department today with rib pain. Patient states that he slept here last night and felt better but now he is having rib pain again and would like to be reevaluated for that. Patient states that he has a broken rib that he knows about from a previous incident. Patient denies any dizziness, lightheadedness, abdominal pain, nausea, vomiting, fever, chills, blurry vision, double vision, loss of vision, chest pain, difficulty breathing, shortness of breath, back pain, night sweats, pain with urination, increased urinary frequency, increased urinary urgency, blood in his urine or stool, syncope or a near syncopal episode, recent trauma or falls, bowel incontinence, bladder incontinence, bowel retention, bladder retention, or any other complaints at this time. Quality: dull Pain Consistency: constant Relieving factors: none Exacerbating factors: none Associated symptoms: denies other symptoms Related Data Home Medications Medication Instructions Recorded Confirmed methadone 10 mg/mL oral 60 mg PO DAILY 12/22/20 12/22/20 concentrate (Methadose) Previous Rx's Medication Instructions Recorded ketorolac 10 mg tablet 10 mg PO Q6H PRN 5 Days #20 tab 04/21/21 Allergies Allergy/AdvReac Type Severity Reaction Status Date / Time codeine [CODEINE] Allergy Unknown ANAPHYLAXIS Verified 12/21/20 20:44 Review of Systems Constitutional: Constitutional: Reports no additional constitutional complaints, Denies chills, Denies fever(s) and Denies night sweats Eyes: Eyes: Reports no additional eye complaints, Denies blurry vision, Denies change in vision, Denies diplopia, Denies eye discharge, Denies loss of vision and Denies eye pain ENT: Denies dizziness Cardiovascular: Cardiovascular: Reports no additional cardiovascular complaints, Denies chest pain, Denies lightheadedness, Denies Loss of Consciousness and Denies dyspnea Respiratory: Respiratory: Reports no additional respiratory complaints and Denies dyspnea Gastrointestinal: Gastrointestinal: Reports no additional gastrointestinal complaints, Denies abdominal pain, Denies melena, Denies hematochezia, Denies change in bowel habits and Denies change in stool character Genitourinary: Genitourinary: Reports no additional male genitourinary complaints, Denies hematuria, Denies oliguria, Denies difficulty urinating, Denies dysuria, Denies urinary frequency, Denies urinary hesitancy, Denies urinary incontinence and Denies urinary urgency Musculoskeletal: Musculoskeletal: Reports no additional musculoskeletal complaints, Denies numbness and Denies tingling Neurologic: Denies dizziness, Denies loss of vision, Denies numbness and Denies tingling Psychiatric: Psychiatric: Reports no additional psychiatric complaints Endocrine: Endocrine: Reports no additional endocrine complaints Hematologic/Lymphatic: Hematologic/Lymphatic: Reports no additional hematologic/lymphatic complaints Allergic/Immunologic: Allergic/Immunologic: Reports no additional allergic/immunologic complaints [facility] Past Medical History Attestation statement: The following information was validated with the patient. Source: old records reviewed Medical History Substance abuse Social History Social History Alcohol intake: former Patient Tobacco Use Status: Current everyday Tobacco user Substance Use Type: Heroin Advance Directives: No Advance Directives Information Provided: No Physical Exam ED Vital Signs: Vital Signs - 24 hr 04/21/21 07:38 04/21/21 09:08 Temperature 98 F Pulse Rate 55 62 Respiratory Rate 20 18 Blood Pressure 115/67 115/73 Pulse Oximetry 94 96 BMI result Body Mass Index 23.7 Const General: cooperative, no acute distress, alert and awake Nutritional Appearance: well nourished Orientation/consciousness: patient oriented x3 Limitations: no limitations [facility] Head: Yes normal to inspection and Yes atraumatic Ears: hearing grossly normal bilaterally and external ears normal General nose exam: Normal external nose present, no nasal discharge noted and no epistaxis Face and sinus: Yes normal facial exam, No abrasion and No laceration Mouth: Normal oral and palatal mucosa present, no drooling and no muffled voice Eyes General: appearance normal, both eyes and all related structures Periorbital: periorbital findings normal Eyelids: Yes eyelids normal Conjunctivae: conjunctivae normal Pupils: Equal, round and reactive pupils present EOM: EOMs intact bilaterally Neck Neck: Yes normal visual inspection, Yes full ROM and Yes no lymphadenopathy Chest Chest palpation & inspection: normal inspection of the chest Resp Effort & Inspection: normal respiratory effort and able to speak in complete sentences Auscultation: clear to auscultation bilaterally Cardio Rate: regular rate Rhythm: regular rhythm GI Inspection: Yes normal to inspection Neuro General: patient oriented x3 and moves all extremities Cranial nerves: Yes Equal, round and reactive pupils present Cognition (Neuro): normal cognition Motor exam (neuro): 5/5 motor strength present throughout Sensory Exam: Normal double simultaneous stimulation for sensation Coordination: [id number] test normal Extrem General: Yes normal to inspection, Yes full ROM and Yes capillary refill normal Psych Appearance: grossly normal Mental Status: mental status grossly normal Affect: normal affect Attitude: cooperative Thought process: Normal thought process present Thought content: Normal thought content present Insight: Good insight present (Psych) Medical Decision Making MDM Narrative Medical decision making narrative: Patient is a 45 year old male presenting to the emergency department today with left sided rib pain. Patient's physical exam was unremarkable. Patient's chest x-ray showed no acute process. Patient's CT chest from 04/20/2021 showed a nondisplaced left 9th rib fracture. I explained my physical exam findings as well as all test results to the patient. I answered all questions asked by the patient. Patient received his daily dose of PO Methadone. I stressed the importance of the patient taking his medication as prescribed. I stressed the importance of the patient following up with his primary care provider. I stressed the importance of the patient returning to the emergency department immediately if his symptoms were to worsen or if he were to develop any dizziness, shortness of breath, difficulty breathing, chest pain, blurry vision, loss of vision, nausea, vomiting, abdominal pain, fever, chills, back pain, or any other complaints. Patient verbalized agreement and understanding with this treatment plan and discharge. Differential Diagnosis Differential Diagnosis: rib fracture, malingering Medical Records Medical records reviewed: Yes I reviewed the patient's medical records. Imaging Data Chest x-ray: Attestation: I personally reviewed and interpreted this imaging study as follows: Radiologist's impression: EXAMINATION: XR CHEST CLINICAL INFORMATION: Chest pain COMPARISON: None TECHNIQUE: Frontal view of the chest was obtained. FINDINGS: The lungs are well-expanded. There is no focal consolidation, edema or effusion. No pneumothorax. The cardiomediastinal silhouette is within normal limits. No acute osseous abnormality. XR/XR chest 1V IMPRESSION: No acute pulmonary disease. ? Dictated By: Osmin Caballero MD Signed By: Electronically signed by Osmin Caballero MD 04/21/[address] cchest: Attestation: I personally reviewed and interpreted this imaging study as follows: Radiologist's impression: Dictated By:Osmin Caballero MDSigned By:<Electronically signed by Osmin Caballero MD in OV>04/21/21 0849 DD/ [id number]/TT: Lockstitch Lining Maker: EXAMINATION: CT CHEST, ABDOMEN AND PELVIS WITHOUT CONTRAST. CLINICAL INFORMATION: Fall, rib pain . COMPARISON: Fall with rib pain. Trauma. TECHNIQUE: Multidetector volumetric imaging was performed from the thoracic inlet through the pubic symphysis without intravenous contrast. Sagittal and coronal reformatted images were obtained on the technologist workstation. This CT examination was performed using dose optimization techniques as appropriate, variously including the following: *Automated exposure control *Adjustment of mA and/or kV according to patient size (this includes techniques or standardized protocols for targeted exams where dose is matched to indication/reason for exam; i.e. extremities or head) *Use of iterative reconstruction technique DLP: 808 mGy-cm FINDINGS: CHEST: Lungs: Minimal bibasilar dependent atelectasis. No pneumothorax. No dense consolidation Mediastinum: The mediastinum is normal. The central vascular structures are unremarkable. No hilar or mediastinal lymphadenopathy. Pericardium/Pleura: Small layering left pleural effusion. Chest Wall/Axilla: Unremarkable. ABDOMEN/PELVIS: Peritoneal Space:No significant free air or free fluid identified. Liver, Gallbladder, Biliary Tree: The non contrast liver is normal in size, shape, and attenuation. No focal hepatic lesion or biliary ductal dilatation is present. The gallbladder is unremarkable with no evidence of radiopaque gallstones, gallbladder wall thickening, or obvious pericholecystic inflammatory changes. Pancreas: Unremarkable. Spleen: Unremarkable. Adrenal Glands: Unremarkable. Kidneys and Ureters: The kidneys are normal in size, shape, and attenuation. No hydronephrosis, hydroureter, or calculi seen. No perinephric stranding. Bladder: Unremarkable. Gastrointestinal Tract: Colon is mostly decompressed and difficult to evaluate but no colonic wall thickening or pericolonic inflammatory change. Visualized small bowel grossly unremarkable Abdominal Wall: No significant hernia is appreciated. Lymphovascular Structures: Mild vascular calcification within the aorta iliac system.. Pelvic Viscera: Unremarkable. Osseus Structures: Nondisplaced lateral left sided ninth rib fracture is seen. No other definitive rib fractures noted. No other acute bony abnormality seen. CT/CT chest wo con IMPRESSION: Nondisplaced lateral left sided ninth rib fracture. Small left-sided pleural effusion but no pneumothorax. Mild dependent atelectasis. No visceral organ injury appreciated on this noncontrast study. Dictated By:BERTA LABOY MD Electronically signed by BERTA LABOY MD Discharge Plan Discharge Clinical Impression: Closed rib fracture Patient Disposition: Home, Self-Care Instructions: Rib Fracture (ED) Additional Instructions: Follow up with your primary care provider. Return to the emergency department immediately if your symptoms worsen or if you develop any dizziness, shortness of breath, difficulty breathing, chest pain, blurry vision, loss of vision, nausea, vomiting, abdominal pain, fever, chills, back pain, or any other complaints. Prescriptions: No Action methadone [Methadose] 10 mg/mL Concentrate 60 mg PO DAILY 0RF ketorolac 10 mg tablet 10 mg PO Q6H PRN (Reason: pain) 5 Days Qty: 20 0RF Rx Instructions: 60 mg IM dose given in the emergency department. Rib fractures. Print Language: Guatemalan
[2021-04-21 09:08] VITALS: BP 115/73; PULSE 62; RESP 18; O2SAT 96
--- NOTE | 2021-04-21 09:34 | MHC.RECOVSUP ---
Recovery Support note: This telegraphic typewriter repairer assisted ED staff in verifying methadone dose. Aye BOYCE at [facility] reports patient last dosed on 04/20/21 and received 80mg. Last dose letter will be provided prior to discharge.
[2021-04-21] MEDS: methADONE HCl 20 MG/2 ML ORAL.CONC 80 MG PO (09:54)
--- NOTE | 2021-04-21 10:11 | PC.NURSE ---
PT LEFT HOSPITAL WITH ONE OF OUR PHONES. SECURITY AWARE. PT DENIED TO SECURITY. NOT IN ROOM OR TRASH
== END 2021-04-21 10:19 | disposition home or self-care (01) ==
PROVIDERS: Emergency Provider Emergency Medicine
DX: S22.31XA Fracture of one rib, right side, initial encounter for closed fracture (principal); S22.32XA Fracture of one rib, left side, initial encounter for closed fracture; S27.9XXA Injury of unspecified intrathoracic organ, initial encounter; R07.81 Pleurodynia; R07.89 Other chest pain; F11.90 Opioid use, unspecified, uncomplicated; F17.200 Nicotine dependence, unspecified, uncomplicated; X58.XXXA Exposure to other specified factors, initial encounter; Y93.9 Activity, unspecified; Y92.9 Unspecified place or not applicable; Y99.9 Unspecified external cause status; Z79.899 Other long term (current) drug therapy; Z71.6 Tobacco abuse counseling
CPT/HCPCS: 71045; 99284

== ENCOUNTER 2022-03-19 21:34 | Emergency (ER) | payer OTHER, SELFPAY ==
[2022-03-19 21:39] VITALS: BP 151/95; PULSE 106; RESP 20; TEMP 36.6; O2SAT 98; BMI 27.8
--- NOTE | 2022-03-19 22:05 | ED.PSYCH ---
HPI - Psych General Chief Complaint: Psychiatric Symptoms Stated Complaint: psych eval Time Seen by Provider: 03/19/22 21:47 Source: patient Mode of arrival: ambulatory Limitations: no limitations History of Present Illness HPI Narrative: Patient comes to the emergency room requesting psychiatric help. Patient states that he went to [facility] for addiction help. However, patient has suicidal thoughts and they sent him to the emergency room for further evaluation. Patient states that he has been diagnosed with anxiety and depression in the past. Also, patient reports that for approximately 1 year he has hearing voices telling him to hurt himself. Patient does not have formal diagnosis. Patient started Prozac approximately 6 weeks ago, worsened his anxiety , suicidal thoughts, and the voices which he occasionally was hearing telling him to hurt himself got more intense. Patient states that a few weeks ago, patient seriously considered hanging himself. Patient when out to his backyard, tried to remove the rope from the hammock and was going to use it to hang himself. However, the knot was too tight and he was unable to do so. Patient admits to drug abuse. Patient very upset with himself, states he has a 7 and 9-year-old kids, feels like a failure to him and the mother of his kids, who does not use drugs or alcohol. Related Data Home Medications Medication Instructions Recorded Confirmed methadone 10 mg/mL oral 60 mg PO DAILY 12/22/20 12/22/20 concentrate (Methadose) glecaprevir 100 mg-pibrentasvir 40 3 tab PO DAILY 03/19/22 03/19/22 mg tablet (Mavyret) Allergies Allergy/AdvReac Type Severity Reaction Status Date / Time codeine [CODEINE] Allergy Unknown ANAPHYLAXIS Verified 03/19/22 21:43 Review of Systems Review of Systems: Constitutional : No Weight loss, No Fever, No Chills, No Night Sweats, No Fatigue, No Malaise ENT/Mouth : No Hearing loss, No Ear Pain, No Nasal Congestion, No Sinus Pain, No Hoarseness, No sore throat, No Rhinorrhea, No Swallowing Difficulty Eyes: No Eye Pain, No Swelling, No Redness, No Foreign Body, No Discharge, No Vision Changes Cardiovascular : No Chest Pain, No SOB, No Dyspnea on Exertion, No Orthopnea, No Edema, No Palpitations Respiratory : No Cough, No Sputum, No Wheezing, No Smoke Exposure, No Dyspnea Gastrointestinal : No Nausea, No Vomiting, No Diarrhea, No Constipation, No abdominal Pain, No Hematochezia, No Melena Genitourinary : no irregular bleeding, No Dysuria, No Urinary Frequency, No Hematuria, No Urinary Incontinence, No Urgency, No Flank Pain, No Urinary Flow Changes, No Hesitancy Musculoskeletal : No joint pain, No Myalgias, No Joint Swelling Skin : No Skin Lesions, No rash Neuro : No Weakness, No Numbness, No Paresthesias, No Loss of Consciousness, No Dizziness, No Headache Psych : Complaining of anxiety, depression, suicidal ideation, no homicidal ideation, drug abuse Heme/Lymph: No Bruising, No Bleeding,No Lymphadenopathy Endocrine : No Polyuria, No Polydipsia, No Temperature Intolerance PMFSH Past Medical History Medical History Substance abuse Social History Social History Alcohol intake: former Patient Tobacco Use Status: Current everyday Tobacco user Substance Use Type: Heroin Advance Directives: No Advance Directives Information Provided: No Physical Exam Vital Signs: Vital Signs: Last Vital Signs Temp 97.9 F 03/19/22 21:39 Pulse 106 H 03/19/22 21:39 Resp 20 03/19/22 21:39 BP 151/95 H 03/19/22 21:39 Pulse Ox 98 03/19/22 21:39 O2 Del Method 03/19/22 21:39 BMI result Body Mass Index 27.8 Const: Other: Appearance: Alert. Oriented X3. No acute distress. Eyes: Pupils equal, round and reactive to light. ENT: Pharynx normal. Neck: Normal inspection. Neck supple. No lymph nodes noted. No crepitus CVS: Normal heart rate and rhythm. Pulses normal. Normal S1 and S2 Respiratory: No respiratory distress. Breath sounds normal. No Wheezing. No rales Abdomen: Soft and nontender. No rigidity. No distention. Skin: Skin warm and dry. Normal skin color. Normal skin turgor. Extremities: No lower extremity edema. No Lacerations. No Rash Neuro: Oriented X 3. No motor deficit. No sensory deficit. Moving all extremities. No slurred speech. CN 2 through 12 grossly intact Psych: calm, cooperative, normal affect Course Course Course Narrative: Patient's labs are pending. Patient had serious thoughts of hurting himself. Patient is now on a Section 12 Physician observation started that 22:10 Medical Decision Making Differential Diagnosis Differential Diagnoses: The differential diagnosis associated with the presentation includes (Anxiety, depression, suicidal ideation, substance abuse) Admission/Observation Consideration of admission/observation: Escalation of care including admission/observation considered (Patient is under observation until he is seen by the care team. Patient is on a Section 12) Discharge Plan Discharge Clinical Impression: Suicide ideation, Auditory hallucinations, Substance abuse Patient Disposition: Still a Patient Prescriptions: No Action methadone [Methadose] 10 mg/mL Concentrate 60 mg PO DAILY Mavyret 100-40 mg tablet 3 tab PO DAILY
[2022-03-19] MEDS: LORazepam 1 MG TABLET 2 MG PO (22:07)
[2022-03-19 22:16] LABS: COVID-19 Test Negative (Negative); IDNOW Serial# 55D5AD1C
[2022-03-19 22:32] LABS: MANUAL DIFF FLAG NO
[2022-03-19 22:32] LABS: Appearance Urine Clear; Color Urine Yellow; Glucose Urine UA Negative (Negative); Leukocyte Esterase Urine Negative (Negative); Nitrite Urine Negative (Negative); Specific Gravity - Urine >= 1.030 (1.005-1.025); UMIC TRIGGER UA YES; Urine Blood Moderate (2+) (Negative); Urine Ketones Negative (Negative); Urine Protein Trace mg/dL (Neg-Trace)
[2022-03-19 22:38] LABS: Bacteria Urine None Seen (None Seen); Hyaline Casts Urine 0-2 /LPF (0-2); Squamous Epithelial Cell Urine 0-2 /HPF (0-2); WBC Urine 0-5 /HPF (0-5)
[2022-03-19 22:40] LABS: Amphetamine Screen Urine Not Detected (Not Detect); Barbiturates, Urine Not Detected (Not Detect); Benzodiazepines Screen Urine Not Detected (Not Detect); Cannabinoid Screen Urine Not Detected (Not Detect); Cocaine Screen Urine POSITIVE (Not Detect); Fentanyl, urine POSITIVE (Not Detect); Opiate Screen Urine POSITIVE (Not Detect); Phencyclidine Screen Urine Not Detected (Not Detect)
[2022-03-19 22:48] LABS: Alanine Aminotransferase 24 U/L (0-40); Albumin Level 4.6 g/dL (3.5-5.0); Alkaline Phosphatase 87 U/L (39-117); Anion Gap 13 (12-20); Aspartate Amino Transferase 41 U/L (5-37); Basophils Percent Auto 0.3 % (0-2); Bilirubin Total 0.4 mg/dL (0.0-1.0); Blood Urea Nitrogen 20 mg/dL (9-16); Calcium 9.5 mg/dL (8.4-10.2); Carbon Dioxide 28 mmol/L (22-29); Chloride 99 mmol/L (96-108); Creatinine Clr Calc Pharmacy 136.3; Eosinophils Percent Auto 0.3 % (0-4); Estimated Glomerular Filt Rate > 60; Glucose Random 87 mg/dL (60-115); Hematocrit 39.4 % (42.0-52.0); Hemoglobin 13.6 g/dl (14.0-18.0); Imm Gran Abs Auto 0.05 X10*3/uL (0.00-0.03); Imm Gran Pct Auto 0.4 % (0.0-0.4); Lymphocytes Absolute Auto 1.9 X10*3/uL (1.2-4.9); Lymphocytes Percent Auto 15.1 % (20-40); Mean Corpuscular HGB Conc 34.5 g/dl (31.0-36.0); Mean Corpuscular Hemoglobin 28.8 pg (27.0-33.0); Mean Corpuscular Volume 83.3 fL (80.0-98.0); Mean Platelet Volume 10.8 fL (9.4-12.4); Monocytes Absolute Auto 0.9 X10*3/uL (0.1-1.2); Neutrophils Absolute Auto 9.6 x10*3/uL (2.0-8.3); Neutrophils Percent Auto 76.9 % (45-73); Platelet Count 270 X10*3/uL (160-400); Potassium 4.1 mmol/L (3.3-5.1); Red Blood Count 4.73 X10*6/uL (4.60-5.80); Red Cell Distribution Width 12.7 % (11.0-16.0); Sodium 136 mmol/L (135-145); Total Protein 7.8 g/dL (6.5-8.0); White Blood Count 12.4 X10*3/uL (4.8-10.8)
[2022-03-19 22:52] LABS: Ethanol < 10 mg/dL
--- NOTE | 2022-03-20 05:47 | PC.NURSE ---
Patient slept through the night, no distress observed/reported, Ativan 2 mg po administered at the time of arrival with + effect, behavior non concerning follows direction well, appetite good, patient engaged with well care team, disposition is section 12 inpatient bed search, med rec completed/patient is currently not on any psychiatric maintenance medication, per patient he stopped taking long time ago, VSS, will continue to monitor.
[2022-03-20 06:00] VITALS: BP 148/92; PULSE 98; RESP 17; TEMP 36.6; O2SAT 99
--- NOTE | 2022-03-20 06:45 | HE.PHANOTE ---
Addendum entered by Marva Boyd [facility] 03/20/22 06:51: Called other locations and could not confirm any doses, patient has not been seen by them in some time. Original Note: Methadone verification received from BENJAMÍN Brewer. Confirmed methadone dose of 120 mg with [facility] clinic in [place], last confirmed dose was 03/11/22. Osman mentioned patient also went to [facility] and ended up at [facility].
--- NOTE | 2022-03-20 12:38 | PC.NURSE ---
Nurse to nurse report at [facility] successful, to transport pt PHONG.
== END 2022-03-20 14:19 ==
PROVIDERS: Emergency Provider Emergency Medicine
DX: R44.0 Auditory hallucinations (principal); R45.851 Suicidal ideations; F11.90 Opioid use, unspecified, uncomplicated; F17.210 Nicotine dependence, cigarettes, uncomplicated; Z20.828 Contact with and (suspected) exposure to other viral communicable diseases; Z20.822 Contact with and (suspected) exposure to COVID-19; Z71.6 Tobacco abuse counseling; Z79.899 Other long term (current) drug therapy
CPT/HCPCS: 36415; 80053; 80307; 81001; 82077; 85025; 87635; 99285; S9485

== ENCOUNTER 2022-06-22 08:54 | Emergency (ER) | payer OTHER, SELFPAY ==
--- NOTE | 2022-06-22 | ECG_ITS ---
Test Reason : cocaine use Blood Pressure : / mmHG Vent. Rate : 054 BPM Atrial Rate : 054 BPM P-R Int : 162 ms QRS Dur : 090 ms QT Int : 470 ms P-R-T Axes : 034 -28 010 degrees QTc Int : 445 ms Sinus bradycardia Low voltage QRS Nonspecific T wave abnormality Abnormal ECG When compared with ECG of 20-APR-2021 21:12, No significant change was found Referred By: Generic ED Physician Electronically Signed By:ANSON HERNANDEZ
[2022-06-22 09:13] VITALS: BP 113/78; PULSE 72; RESP 18; TEMP 36.5; O2SAT 96; BMI 31.4
--- NOTE | 2022-06-22 10:05 | ED_ITS ---
HPI - Psych General Chief Complaint: Psychiatric Symptoms Stated Complaint: crisis Time Seen by Provider: 06/22/22 10:00 Source: patient Mode of arrival: ambulatory Limitations: no limitations History of Present Illness HPI Narrative: 47-year-old male with history of opiate use disorder currently on methadone 108 mg daily presents seeking detox for both cocaine and heroin use. Patient reports he uses daily. Patient injects. Patient denies any other substance use. He tells me he did wake up today feeling quite hopeless and states I might be better off . Patient feels that this is related to his substance use and sobriety and does not feel like he would actually kill himself. He denies any homicidal ideations, hallucinations. No physical complaints. He is looking for detox today. Related Data Home Medications Medication Instructions Recorded Confirmed methadone 10 mg/mL oral 120 mg PO DAILY 12/22/20 03/20/22 concentrate (Methadose) Allergies Allergy/AdvReac Type Severity Reaction Status Date / Time codeine [CODEINE] Allergy Unknown ANAPHYLAXIS Verified 06/22/22 09:16 Review of Systems Review of Systems: Yes all other systems are reviewed and are negative Constitutional: Constitutional: Reports no additional constitutional complaints, Denies body ache(s), Denies chills, Denies fever(s), Denies headache(s) and Denies weakness Eyes: Eyes: Reports no additional eye complaints and Denies change in vision ENT: Reports system reviewed and no additional complaints, except as documented, Denies dizziness, Denies headache(s), Denies nasal congestion, Denies nasal discharge and Denies neck pain Cardiovascular: Cardiovascular: Reports no additional cardiovascular complaints, Denies chest pain, Denies leg edema and Denies dyspnea Respiratory: Respiratory: Reports no additional respiratory complaints, Denies cough and Denies dyspnea Gastrointestinal: Gastrointestinal: Reports no additional gastrointestinal complaints, Denies abdominal pain, Denies diarrhea, Denies nausea and Denies vomiting Genitourinary: Genitourinary: Denies urinary incontinence Musculoskeletal: Musculoskeletal: Reports no additional musculoskeletal complaints, Denies back pain, Denies arthralgias, Denies joint swelling, Denies neck pain, Denies numbness and Denies tingling Integumentary/Breasts: Skin/Breast: Reports system reviewed and no additional complaints, except as docu and Denies rash Neurologic: Reports system reviewed and no additional complaints, except as documented, Denies Abnormal speech present, Denies dizziness, Denies headache(s), Denies numbness, Denies tingling and Denies weakness Psychiatric: Psychiatric: Reports depression PMFSH Past Medical History Attestation statement: The following information was validated with the patient. Source: old records reviewed and nursing notes reviewed Medical History Substance abuse Social History Social History Alcohol intake: former Patient Tobacco Use Status: Current everyday Tobacco user Substance Use Type: Heroin Advance Directives: No Advance Directives Information Provided: No Physical Exam Vital Signs: Vital Signs: Last Vital Signs Temp 97.7 F 06/22/22 09:13 Pulse 72 06/22/22 09:13 Resp 18 06/22/22 09:13 BP 113/78 06/22/22 09:13 Pulse Ox 96 06/22/22 09:13 O2 Del Method Room Air 06/22/22 09:13 BMI result Body Mass Index 31.4 Const: General: cooperative, healthy appearing, comfortable and no acute distress Orientation/consciousness: patient oriented x3 Limitations: no limitations HEENT: Head: Yes normal to inspection Ears: hearing grossly normal bilaterally General nose exam: Normal external nose present Face and sinus: Yes normal facial exam Mouth: Normal oral and palatal mucosa present Throat: Yes posterior oropharynx normal Eyes: General: appearance normal, both eyes and all related structures Pupils: Equal, round and reactive pupils present Neck: Neck: Yes normal visual inspection Chest: Chest palpation & inspection: normal inspection of the chest Resp: Effort & Inspection: normal respiratory effort Auscultation: clear to auscultation bilaterally Cardio: Rate: regular rate Rhythm: regular rhythm Peripheral pulses: Peripheral pulses 2+ throughout GI: Inspection: Yes normal to inspection Palpation (GI): Soft to palpation and nontender Auscultation: normal bowel sounds Back/Spine/Pelvis: Thoracic/Lumbar Spine: thoracic and lumbar spine normal to inspection Skin: General skin exam: no rashes or lesions noted Neuro: General: patient oriented x3, no focal motor deficits and normal sensation to monofilament Cranial nerves: Yes Equal, round and reactive pupils present Cognition (Neuro): normal cognition Speech: No Abnormal speech present Gait exam (Neuro): Normal gait present Motor exam (neuro): 5/5 motor strength present throughout Extrem: General: Yes normal to inspection Course Course Course Narrative: I reviewed the patient's labs. He has mildly elevated AST and ALT. I spoke to the patient he has a history of hepatitis-C. This is likely the cause. He has no abdominal pain or vomiting to suggest underlying abdominal pathology Reevaluation(s) Reevaluation #1: 1600-patient was seen by care team. No concern for SI. Patient is waitingto be seen by gymnastic coach. Medical Decision Making Medical Decision Making [facility] Narrative: 47-year-old male with history of polysubstance use presents to the ER seeking detox. Patient does report some did cope with depression but does not sure if feels suicidal. No physical complaint No concern for acute ingestion or trauma. Will need labs, drug screen, care consultation for detox Differential Diagnosis Differential Diagnoses: The differential diagnosis associated with the presentation includes Consult Healthcare Provider Management of the patient was discussed with: Behavioral Health Provider Seen by care team-plan for gymnastic coach for detox Lab Data 06/22/22 10:26 06/22/22 10:26 Labs: Lab Results 06/22/22 06/22/22 06/22/22 Range/Units 10:05 10:05 10:23 WBC (4.8-10.8) X10*3/uL RBC (4.60-5.80) X10*6/uL Hgb (14.0-18.0) g/dl Hct (42.0-52.0) % MCV (80.0-98.0) fL MCH (27.0-33.0) pg MCHC (31.0-36.0) g/dl RDW (11.0-16.0) % Plt Count (160-400) X10*3/uL MPV (9.4-12.4) fL Immature Gran % (Auto) (0.0-0.4) % Neut % (Auto) (45-73) % Lymph % (Auto) (20-40) % [place] % (Auto) (2-11) % Eos % (Auto) (0-4) % Baso % (Auto) (0-2) % Lymph # (Auto) (1.2-4.9) X10*3/uL [place] # (Auto) (0.1-1.2) X10*3/uL Eos # (Auto) (0.0-0.4) X10*3/uL Baso # (Auto) (0.0-0.2) X10*3/uL Abs Immat Gran (auto) (0.00-0.03) X10*3/uL Absolute Neuts (auto) (2.0-8.3) x10*3/uL Absolute Nucleated RBC (0.0-0.012) X10*3/uL Nucleated RBC % (auto) (0.0-0.2) /100WBC Sodium (135-145) mmol/L Potassium (3.3-5.1) mmol/L Chloride (96-108) mmol/L Carbon Dioxide (22-29) mmol/L Anion Gap (12-20) BUN (9-16) mg/dL Creatinine (0.5-1.4) mg/dL Estim Creat Clear Calc Estimated GFR Random Glucose (60-115) mg/dL Calcium (8.4-10.2) mg/dL Total Bilirubin (0.0-1.0) mg/dL AST (5-37) U/L ALT (0-40) U/L Alkaline Phosphatase (39-117) U/L Total Protein (6.5-8.0) g/dL Albumin (3.5-5.0) g/dL Urine Color Dark Yellow Urine Appearance Clear Urine pH 6.0 (5.0-9.0) Ur Specific [place] >= 1.030 H (1.005-1.025) Urine Protein Trace (Neg-Trace) mg/dL Urine Glucose (UA) Negative (Negative) mg/dL Urine Ketones Trace (Negative) mg/dL Urine Blood Negative (Negative) Urine Nitrite Negative (Negative) Ur Leukocyte Esterase Trace H (Negative) Urine RBC 11-20 H (0-2) /HPF Urine WBC 0-5 (0-5) /HPF Ur Squamous Epith Cells 0-2 (0-2) /HPF Urine Bacteria None Seen (None Seen) Hyaline Casts 0-2 (0-2) /LPF Salicylates (15-30) mg/dL Urine Opiates Screen POSITIVE H (Not Detect) Urine Fentanyl Screen POSITIVE H (Not Detect) Acetaminophen (<30) mcg/mL Ur Barbiturates Screen Not Detected (Not Detect) Ur Phencyclidine Scrn Not Detected (Not Detect) Ur Amphetamines Screen Not Detected (Not Detect) U Benzodiazepines Scrn Not Detected (Not Detect) Urine Cocaine Screen POSITIVE H (Not Detect) U Marijuana (THC) Screen Not Detected (Not Detect) Ethyl Alcohol mg/dL COVID-19 (JACK) Negative (Negative) COVID-19 Clin Com See Note 06/22/22 06/22/22 06/22/22 Range/Units 10:26 10:26 10:26 WBC 4.6 L (4.8-10.8) X10*3/uL RBC 4.72 (4.60-5.80) X10*6/uL Hgb 14.0 (14.0-18.0) g/dl Hct 40.1 L (42.0-52.0) % MCV 85.0 (80.0-98.0) fL MCH 29.7 (27.0-33.0) pg MCHC 34.9 (31.0-36.0) g/dl RDW 13.0 (11.0-16.0) % Plt Count 190 D (160-400) X10*3/uL MPV 11.3 (9.4-12.4) fL Immature Gran % (Auto) 0.2 (0.0-0.4) % Neut % (Auto) 52.7 (45-73) % Lymph % (Auto) 32.8 (20-40) % [place] % (Auto) 10.2 (2-11) % Eos % (Auto) 3.0 (0-4) % Baso % (Auto) 1.1 (0-2) % Lymph # (Auto) 1.5 (1.2-4.9) X10*3/uL [place] # (Auto) 0.5 (0.1-1.2) X10*3/uL Eos # (Auto) 0.1 (0.0-0.4) X10*3/uL Baso # (Auto) 0.1 (0.0-0.2) X10*3/uL Abs Immat Gran (auto) 0.01 (0.00-0.03) X10*3/uL Absolute Neuts (auto) 2.4 (2.0-8.3) x10*3/uL Absolute Nucleated RBC 0.000 (0.0-0.012) X10*3/uL Nucleated RBC % (auto) 0.0 (0.0-0.2) /100WBC Sodium 138 (135-145) mmol/L Potassium 4.2 (3.3-5.1) mmol/L Chloride 98 (96-108) mmol/L Carbon Dioxide 29 (22-29) mmol/L Anion Gap 15 (12-20) BUN 17 H (9-16) mg/dL Creatinine 0.82 (0.5-1.4) mg/dL Estim Creat Clear Calc 135.4 Estimated GFR > 60 Random Glucose 121 H (60-115) mg/dL Calcium 9.3 (8.4-10.2) mg/dL Total Bilirubin 1.2 H (0.0-1.0) mg/dL AST 138 H (5-37) U/L ALT 153 H (0-40) U/L Alkaline Phosphatase 103 (39-117) U/L Total Protein 7.3 (6.5-8.0) g/dL Albumin 4.4 (3.5-5.0) g/dL Urine Color Urine Appearance Urine pH (5.0-9.0) Ur Specific [place] (1.005-1.025) Urine Protein (Neg-Trace) mg/dL Urine Glucose (UA) (Negative) mg/dL Urine Ketones (Negative) mg/dL Urine Blood (Negative) Urine Nitrite (Negative) Ur Leukocyte Esterase (Negative) Urine RBC (0-2) /HPF Urine WBC (0-5) /HPF Ur Squamous Epith Cells (0-2) /HPF Urine Bacteria (None Seen) Hyaline Casts (0-2) /LPF Salicylates < 5.0 L Cancelled (15-30) mg/dL Urine Opiates Screen (Not Detect) Urine Fentanyl Screen (Not Detect) Acetaminophen < 17 Cancelled (<30) mcg/mL Ur Barbiturates Screen (Not Detect) Ur Phencyclidine Scrn (Not Detect) Ur Amphetamines Screen (Not Detect) U Benzodiazepines Scrn (Not Detect) Urine Cocaine Screen (Not Detect) U Marijuana (THC) Screen (Not Detect) Ethyl Alcohol < 10 mg/dL COVID-19 (JACK) (Negative) COVID-19 Clin Com Discharge Plan Discharge Clinical Impression: Polysubstance (including opioids) dependence, daily use Patient Disposition: Still a Patient Prescriptions: No Action methadone [Methadose] 10 mg/mL Concentrate 120 mg PO DAILY
[2022-06-22 10:16] LABS: Appearance Urine Clear; Color Urine Dark Yellow; Glucose Urine UA Negative (Negative); Leukocyte Esterase Urine Trace (Negative); Nitrite Urine Negative (Negative); Specific Gravity - Urine >= 1.030 (1.005-1.025); UMIC TRIGGER UACC YES; Urine Blood Negative (Negative); Urine Ketones Trace mg/dL (Negative); Urine Protein Trace mg/dL (Neg-Trace)
[2022-06-22 10:28] LABS: Bacteria Urine None Seen (None Seen); Hyaline Casts Urine 0-2 /LPF (0-2); Squamous Epithelial Cell Urine 0-2 /HPF (0-2); WBC Urine 0-5 /HPF (0-5)
[2022-06-22 10:29] LABS: Amphetamine Screen Urine Not Detected (Not Detect); Barbiturates, Urine Not Detected (Not Detect); Benzodiazepines Screen Urine Not Detected (Not Detect); Cannabinoid Screen Urine Not Detected (Not Detect); Cocaine Screen Urine POSITIVE (Not Detect); Fentanyl, urine POSITIVE (Not Detect); Opiate Screen Urine POSITIVE (Not Detect); Phencyclidine Screen Urine Not Detected (Not Detect)
[2022-06-22 10:31] LABS: MANUAL DIFF FLAG NO
[2022-06-22 10:32] LABS: Basophils Absolute Auto 0.1 X10*3/uL (0.0-0.2); Basophils Percent Auto 1.1 % (0-2); Eosinophils Absolute Auto 0.1 X10*3/uL (0.0-0.4); Hematocrit 40.1 % (42.0-52.0); Imm Gran Abs Auto 0.01 X10*3/uL (0.00-0.03); Imm Gran Pct Auto 0.2 % (0.0-0.4); Lymphocytes Absolute Auto 1.5 X10*3/uL (1.2-4.9); Lymphocytes Percent Auto 32.8 % (20-40); Mean Corpuscular HGB Conc 34.9 g/dl (31.0-36.0); Mean Corpuscular Hemoglobin 29.7 pg (27.0-33.0); Mean Platelet Volume 11.3 fL (9.4-12.4); Monocytes Absolute Auto 0.5 X10*3/uL (0.1-1.2); Monocytes Percent Auto 10.2 % (2-11); Neutrophils Absolute Auto 2.4 x10*3/uL (2.0-8.3); Neutrophils Percent Auto 52.7 % (45-73); Platelet Count 190 X10*3/uL (160-400); Red Blood Count 4.72 X10*6/uL (4.60-5.80); White Blood Count 4.6 X10*3/uL (4.8-10.8)
[2022-06-22 10:44] LABS: COVID-19 Test Negative (Negative); IDNOW Serial# 08D9AD1C
[2022-06-22 11:02] LABS: Alanine Aminotransferase 153 U/L (0-40); Albumin Level 4.4 g/dL (3.5-5.0); Alkaline Phosphatase 103 U/L (39-117); Anion Gap 15 (12-20); Aspartate Amino Transferase 138 U/L (5-37); Bilirubin Total 1.2 mg/dL (0.0-1.0); Blood Urea Nitrogen 17 mg/dL (9-16); Calcium 9.3 mg/dL (8.4-10.2); Carbon Dioxide 29 mmol/L (22-29); Chloride 98 mmol/L (96-108); Creatinine Clr Calc Pharmacy 135.4; Estimated Glomerular Filt Rate > 60; Ethanol < 10 mg/dL; Glucose Random 121 mg/dL (60-115); Potassium 4.2 mmol/L (3.3-5.1); Sodium 138 mmol/L (135-145); Total Protein 7.3 g/dL (6.5-8.0)
[2022-06-22 11:43] LABS: Acetaminophen LAB < 17 mcg/mL (<30); Salicylate < 5.0 mg/dL (15-30)
--- NOTE | 2022-06-22 13:33 | MHC.CARE ---
RISK ASSESSMENT Pt is a 47 year old male who presented to the ED endorsing feelings of hopelessness and passive thoughts of in the context of his struggles with substance use and sustaining recovery. He denied SI/HI/AVH and denied having any history of suicidality. He reported that he uses heroin and cocaine daily, approximately 1gm each, and is on methadone through the [facility] OT clinic in [place]. One month ago he completed detox at [facility] and transitioned to [facility]. When they sent him to [facility] one week ago he reported that he left immediately and started using again. He reported that he is motivated to get into recovery and that he is going to keep trying until he gets there. Pt will be referred to the recovery team for detox placement.
--- NOTE | 2022-06-22 13:55 | MHC.RECOVRN ---
Pts referral sent to [facility] for ATS.
--- NOTE | 2022-06-22 17:54 | MHC.RECOVSUP ---
? Reason for consult: Recovery Support o Current location: ? o Identified substance use concern: ? - Seeking ATS (detox) - Support ? ?Intervention: o ATS bed search started/completed/in process ? Additional information:?Patient consultation with Recovery Team. Patient has a bed reserved at [facility] for 9pm this evening. Signal [employer]ic will order the Lyft and support patient in the transition.
== END 2022-06-22 19:20 | disposition home or self-care (01) ==
PROVIDERS: Emergency Provider Emergency Medicine
DX: F11.229 Opioid dependence with intoxication, unspecified (principal); F14.10 Cocaine abuse, uncomplicated; R00.1 Bradycardia, unspecified; Z20.822 Contact with and (suspected) exposure to COVID-19; Z20.828 Contact with and (suspected) exposure to other viral communicable diseases; Z79.899 Other long term (current) drug therapy; Z71.51 Drug abuse counseling and surveillance of drug abuser
CPT/HCPCS: 80053; 80143; 80179; 80307; 81001; 82077; 85025; 87635; 93005; 99284